=== PATIENT | male | born 1965 | race African-American/Black ===

== ENCOUNTER 2023-07-19 10:32 | Inpatient (IN) | payer OTHER ==
[2023-07-19 11:00] VITALS: BMI 25.0
[2023-07-19] MEDS ORDERED: DICYCLOMINE HCL 10 MG CAPSULE PO PRN (14:45)
[2023-07-19] MEDS ORDERED: POLYETHYLENE GLYCOL (HEALTHYLAX) 3350 17 GM PACKET PO PRN (14:45)
[2023-07-19] MEDS ORDERED: LOPERAMIDE HCL 2 MG CAPSULE PO PRN (14:45)
[2023-07-19] MEDS ORDERED: guaiFENesin 600 MG TABLET.ER (FP) PO PRN (14:45)
[2023-07-19] MEDS ORDERED: BENZONATATE 200 MG CAPSULE PO PRN (14:45)
[2023-07-19] MEDS ORDERED: IBUPROFEN 600 MG TABLET (FP) PO PRN (14:45)
[2023-07-19] MEDS ORDERED: ONDANSETRON *ODT* 4 MG TABLET SL PRN (14:45)
[2023-07-19] MEDS ORDERED: NALOXONE HCL (KLOXXADO) 8 MG SPRAY NS PRN (14:45)
[2023-07-19] MEDS ORDERED: BISMUTH SUBSALICYLATE 524 MG/30 ML PO PRN (14:45)
[2023-07-19] MEDS ORDERED: MAG HYDROX/AL HYDROX/SIMETH 30 ML UNIT-DOSE CUP PO PRN (14:45)
[2023-07-19] MEDS ORDERED: MAGNESIUM HYDROX 2400MG/30ML ORAL SUSPENSION 30 ML CUP PO PRN (14:45)
[2023-07-19] MEDS ORDERED: ACETAMINOPHEN 325 MG TABLET (FP) PO PRN (14:45)
[2023-07-19] MEDS ORDERED: BENZOCAINE/MENTHOL (CHLORASEPTIC ) LOZENGE MM PRN (14:45)
[2023-07-19] MEDS ORDERED: NALOXONE HCL 0.4 MG/ML VIAL IM PRN (14:45)
[2023-07-19] MEDS: diazePAM 5 MG TABLET PO SCH (17:20)
[2023-07-19] MEDS: MELATONIN 5 MG TABLETS PO SCH (22:56)
[2023-07-19] MEDS: THIAMINE 100 MG TABLET PO SCH (22:56)
[2023-07-20] MEDS: PRENATAL VITAMINS W/ FOLIC ACID TABLET (FP) PO SCH (10:48)
[2023-07-20 11:49] LABS: CHLORIDE 108 mmol/L (98-107); HEMATOCRIT 28.3 % (35.4-49); HEMOGLOBIN 8.6 GM/dL (11.7-16.9); MCHC 30.6 g/dl (32.0-35.9); MEAN CELL VOLUME 75.2 fl (80-96); MEAN PLT VOLUME 8.7 fl (7.5-11.1); PLATELET COUNT 108 10^3/uL (134-434); POTASSIUM 3.7 mmol/L (3.5-5.1); RBC 3.76 M/mm3 (4.00-5.60); RDW 28.8 % (11.9-15.9); SODIUM 139 mmol/L (136-145)
[2023-07-20 11:53] LABS: ANION GAP 6 mmol/L (4-13); BLOOD UREA NITROGEN 9.1 mg/dL (7-18); CALCIUM 8.9 mg/dL (8.5-10.1); CO2 25 mmol/L (21-32); GLUCOSE,RANDOM 125 mg/dL (74-106)
[2023-07-20 11:54] LABS: ALBUMIN 3.4 g/dl (3.4-5.0)
[2023-07-20 11:56] LABS: CREATININE 0.8 mg/dL (0.55-1.3); SGOT/AST 56 U/L (15-37)
[2023-07-20 11:58] LABS: BILIRUBIN,TOTAL 0.4 mg/dL (0.2-1); TOT PROT 6.7 g/dl (6.4-8.2)
[2023-07-20 12:00] LABS: ALK PHOS 78 U/L (45-117)
[2023-07-20 12:10] LABS: SGPT/ALT 35 U/L (13-61)
[2023-07-20] MEDS: NICOTINE 21 MG/24 HOURS TOPICAL PATCH TD SCH (14:40)
[2023-07-20] MEDS: IBUPROFEN 400 MG TABLET (FP) PO PRN (17:18)
[2023-07-20] MEDS: hydrOXYzine PAMOATE 25 MG CAPSULE (FP) PO PRN (17:18)
[2023-07-20] MEDS: LACTULOSE 20 GM/30 ML UDC (FOR ORAL USE ONLY) PO SCH (17:34)
[2023-07-20 22:04] LABS: PH,URINE 7.5 (5.0-8.0); URINE APPEARANCE Error; URINE BILIRUBIN NEGATIVE (NEGATIVE); URINE COLOR YELLOW; URINE GLUCOSE (UA) NEGATIVE (NEGATIVE); URINE KETONE NEGATIVE (NEGATIVE); URINE LEUK ESTERASE NEGATIVE (NEGATIVE); URINE NITRITE NEGATIVE (NEGATIVE); URINE PROTEIN NEGATIVE (NEGATIVE); URINE UROBILINOGEN 0.2 mg/dL (0.2-1.0)
[2023-07-21] MEDS: diazePAM 5 MG TABLET PO SCH (05:24)
[2023-07-21] MEDS: METHOCARBAMOL 500 MG TABLET PO PRN (05:25)
[2023-07-21] MEDS: diazePAM 5 MG TABLET PO PRN (09:33)
[2023-07-21 12:22] LABS: HEMATOCRIT 28.3 % (35.4-49); HEMOGLOBIN 8.4 GM/dL (11.7-16.9); MCH 22.6 pg (25.7-33.7); MCHC 29.6 g/dl (32.0-35.9); MEAN CELL VOLUME 76.4 fl (80-96); MEAN PLT VOLUME 8.5 fl (7.5-11.1); PLATELET COUNT 113 10^3/uL (134-434); RBC 3.71 M/mm3 (4.00-5.60); RDW 29.3 % (11.9-15.9); WHITE BLOOD COUNT 3.5 K/mm3 (4.0-10.0)
[2023-07-22] MEDS: diazePAM 5 MG TABLET PO SCH (05:30)
[2023-07-22] MEDS: FERROUS SO4 325 MG TABLET (FP) PO SCH (07:03)
[2023-07-23] MEDS: diazePAM 5 MG TABLET PO ONE (05:37)
[2023-07-23 09:06] VITALS: BP 146/95; PULSE 107; RESP 16; TEMP 97.7
== END 2023-07-23 09:25 | disposition home or self-care (01) | DRG 775 ==
LOC: YASAS 10:32 → Y6N 15:03
PROVIDERS: ADMIT Allergy & Immunology; ATTEND Surgery
PROC: HZ2ZZZZ Detoxification Services for Substance Abuse Treatment (ICD-10-PCS; principal; 2023-07-19)
DX: F10.230 Alcohol dependence with withdrawal, uncomplicated (principal); F17.210 Nicotine dependence, cigarettes, uncomplicated; D61.818 Other pancytopenia; E72.20 Disorder of urea cycle metabolism, unspecified; D50.9 Iron deficiency anemia, unspecified; R76.11 Nonspecific reaction to tuberculin skin test without active tuberculosis; Z59.01 Sheltered homelessness
CPT/HCPCS: 36415; 71046-TC-FY; 80053; 80307; 81003; 82140; 82607; 82746; 83540; 83550; 85027; 85045; 86780; 93005; 93010